=== PATIENT | female | born 1995 | race African-American/Black ===

== ENCOUNTER 2016-02-06 08:22 | Emergency (ER) | payer OTHER ==
[~2016-02-06] VITALS: Ht 180.3 cm; Wt 62.6 kg
[~2016-02-06 08:22] MED LIST: BACTRIM DS 8001 TAB PO; CIPRO 500MG (E500 MG PO; CLEOCIN HCL300 M1 PO; CLEOCIN HCL300 MG PO; CLINDAMYCIN HC300 M1 PO; DOXYCYCLINE HY100 M2 PO; FLONASE120 SPRAY/ NAS; HYDROCODONE/ACE1 TA1 PO; PERCOCET 325 MG1 TA2 PO; PERCOCET 5-3251 EACH PO; PYRIDIUM200 MG PO; VALACYCLOVIR500 MG PO; XYLOCAINE 2% TOP; ZOFRAN ODT4 M1 SL; ZOFRAN4 M1 PO; ZOFRAN4 M1 SL; ZOVIRAX400 MG PO
[2016-02-06 08:25] VITALS: BP 116/81
--- NOTE | 2016-02-06 08:36 | ED GI/GU/ABDOMINAL COMPLAINT ---
History of Present Illness General Chief Complaint: Nausea, Vomiting, Diarrhea Stated Complaint: N/V 10 WEEKS PREG Source: patient Exam Limitations: no limitations Vital Signs & Intake/Output Vital Signs & Intake/Output Vital Signs Date Time Temp Pulse Resp B/P Pulse O2 O2 Flow FiO2 Ox Delivery Rate 02/05 0951 98.8 02/05 0825 98.8 88 16 116/81 99 Room Air Allergies Coded Allergies: Penicillins (RASH 09/07/15) Reconcile Medications Ondansetron (Zofran Odt) 4 MG TAB.RAPDIS 1 TAB SL TID PRN nausea VALACYCLOVIR HCL (Valacyclovir) 500 MG TAB 1 TAB PO DAILY INFECTION (Reported ) Triage Note: PT STATES SHE IS HAVING MORNING SICKNESS. PT STATES SHE IS 10 WEEKS AND SHE FEELS LIKE SHE IS DEHYDRATED. Triage Nurses Notes Reviewed? yes ? Y Is pt currently ? No Onset: Abrupt Duration: hour(s): (SEVERAL) Timing: multiple episodes today Quality/Severity: moderate Location: generalized abdomen Associated Symptoms: nausea/vomiting HPI: This is a 20-year-old female at 10 weeks gestation presents to ER with chief complaint of nausea, 16 episodes of vomiting that started this morning. She states usually gets around 5:30 to go to work at 7. Since waking up this morning she's had 16 episodes of vomiting. She can't tolerate fluids or mane madeline. No fevers or chills. Mild abdominal cramping but no vaginal bleeding. She states that she has been having morning sickness throughout the but today is worse. Denies any known sick contacts per she is working at [employer]. She follows up with Dr. Worley for . She is on daily medications that include Valtrex and multivitamins for the . She was unable to keep those down today as well. Past History Travel History Traveled to [place] past 21 day No Medical History Any Pertinent Medical History? 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 No Review of Systems Review of Systems Constitutional: Denies: chills, fever. EENTM: Reports: no symptoms. Respiratory: Denies: cough, short of breath, sputum production. Cardiovascular: Denies: chest pain, palpitations. GI: Reports: nausea, vomiting. Denies: abdominal pain. Genitourinary: Denies: discharge, dysuria, frequency, pain. Musculoskeletal: Reports: no symptoms. Skin: Reports: no symptoms. Neurological/Psychological: Denies: anxiety, ataxia. Hematologic/Endocrine: Denies: bruising, bleeding, polyuria, polydipsia. Immunologic/Allergic: Denies: splenectomy. All Other Systems: Reviewed and Negative Physical Exam Physical Exam General Appearance: well developed/nourished, alert, awake, mild distress, thin Head: atraumatic, active bleeding Eyes: Bilateral: normal appearance, PERRL, EOMI. Ears, Nose, Throat, Mouth: hearing grossly normal, moist mucous membrane Neck: normal inspection, supple, full range of motion Respiratory: normal breath sounds, chest non-tender, no respiratory distress Cardiovascular: regular rate/rhythm Peripheral Pulses: 2+ radial (R), 2+ radial (L) Gastrointestinal: soft, GRAVID Back: normal inspection, normal range of motion Extremities: normal range of motion Neurologic/Psych: no motor/sensory deficits, awake, alert, oriented x 3 Skin: intact, normal color, warm/dry Core Measures ACS in differential dx? No Severe Sepsis Present: No Septic Shock Present: No Progress Differential Diagnosis: gastritis, HYPEREMESIS, PUD, GERD, PANCREATITIS, GASTROENTERITIS Plan of Care: Orders Procedure Date/time Status URINALYSIS 02/05 0846 Complete Laboratory Tests 02/06/16 0955: Urinalysis LIGHT H, Urine Color YEL, Urine Clarity HAZY H, Urine pH 7.0, Ur Specific [place] 1.020, Urine Protein NEG, Urine Ketones NEG, Urine Nitrite NEG, Urine Bilirubin NEG, Urine Urobilinogen 0.2, Ur Leukocyte Esterase NEG, Ur Microscopic SEDIMENT EXAMINED, Urine RBC RARE, Urine WBC 3-5 H, Ur Epithelial Cells MANY H, Urine Mucus RARE, Urine Hemoglobin NEG, Urine Glucose NEG 02/06/2016 10:48:17 AM Patient feeling better after IV hydration and antiemetics. No longer feeling nauseous. She'll follow up with Dr. Waller in the office. No abdominal pain or vaginal bleeding or discharge. (RONALD KIM,KAROL) Initial ED EKG: none Departure Departure Time of Disposition: 1048 Disposition: HOME OR SELF CARE Condition: Stable Clinical Impression Primary Impression: Vomiting Referrals: SEFERINO BORGES MD (PCP/Family) CHAITANYA RAMOS MD Referred to [facility] as new patient No Additional Instructions: Continue your antinausea medications and vitamins. Follow-up with your HEAVY EQUIPMENT TECHNICIAN doctor in the office. Drink plenty of fluids. Departure Forms: Customer Survey General Discharge Information
== END 2016-02-06 11:05 ==
LOC: ERH 08:22
DX: O21.9 Vomiting of pregnancy, unspecified (principal); Z3A.10 10 weeks gestation of pregnancy
CPT/HCPCS: 81001; 96374; 96375; J0131; J2405

== ENCOUNTER 2016-02-20 10:44 | Emergency (ER) | payer OTHER ==
--- NOTE | 2016-02-20 12:16 | ED GI/GU/ABDOMINAL COMPLAINT ---
History of Present Illness General Chief Complaint: Female Urogenital Problems Stated Complaint: VAG BLEEDING, 3 MONTHS Source: patient Exam Limitations: no limitations Vital Signs & Intake/Output Vital Signs & Intake/Output Vital Signs Date Time Temp Pulse Resp B/P Pulse O2 O2 Flow FiO2 Ox Delivery Rate 02/19 1330 98.0 80 20 120/76 98 Room Air 02/19 1109 97.3 83 22 118/70 97 Allergies Coded Allergies: Penicillins (RASH 09/07/15) Reconcile Medications Ondansetron (Zofran Odt) 4 MG TAB.RAPDIS 1 TAB SL TID PRN nausea VALACYCLOVIR HCL (Valacyclovir) 500 MG TAB 1 TAB PO DAILY INFECTION (Reported ) Triage Note: PER PT PAIN WITH URINATION FOUND BLOOD IN UNDERWEAR. 12 WEEKS . OCCAS CRAMPING NO BLOOD AFTER THAT 1 TIME. LMP 11/19/15 Triage Nurses Notes Reviewed? yes ? Y Is pt currently ? No HPI: This patient is a G1A0P0 female with an unremarkable past medical history who presented to the emergency department today for evaluation of abdominal cramping and possible vaginal bleeding. The patient reported that at approximately 3:00 this morning she was woken up from sleep with 7 out of 10, lower abdominal cramping that felt like, "a period cramp." She reported that it was nonradiating and lasted for a couple hours until she was ASLEEP. She reported that she felt mild cramping later this morning, but not currently. The patient reported that when she got up this morning to go to the bathroom she noticed, "about an ounce of dark brown," blood on her underwear. The patient reported that it was not bright red. She reported that after that incident, she only noticed her normal yellow vaginal discharge. The patient reported that when she went to the bathroom here in the emergency department she did notice a little bit more bleeding. She denied any nausea, vomiting, fevers, chills, back pain, urinary burning, urgency, frequency, or blood in the urine. No leakage of fluid. The patient reported that she called her old SALES REPRESENTATIVE [employer], Dr. Pina, this morning who suggested that she come to the emergency department. This patient's current SALES REPRESENTATIVE [employer] is Dr. Fournier Past History Travel History Traveled to [place] past 21 day No Medical History Any Pertinent Medical History? 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 No Review of Systems Review of Systems Constitutional: Reports: no symptoms. EENTM: Reports: no symptoms. Respiratory: Reports: no symptoms. Cardiovascular: Reports: no symptoms. GI: Reports: see HPI. Genitourinary: Reports: see HPI. Musculoskeletal: Reports: no symptoms. Skin: Reports: no symptoms. Neurological/Psychological: Reports: no symptoms. All Other Systems: Reviewed and Negative Physical Exam Physical Exam Gastrointestinal: normal bowel sounds, soft, non-tender, no organomegaly, no rebound or guarding. No peritoneal signs. No organomegaly Comments: Well-developed well-nourished person in no acute distress HEENT: Normal EENT exam, moist mucous membranes Neck: Full range of motion Back: Normal gait. No CVA tenderness. No midline tenderness Cardiovascular: Regular rate and rhythm with no murmurs Respiratory: No respiratory distress. Speaking in full sentences Extremity: Normal and equal pulses Neuro: Alert oriented x3, motor sensory normal, cranial nerves II through XII grossly intact. Skin: No appreciable rash on exposed skin, skin is warm and dry. Psych: Mood and affect is normal, memory and judgment is normal. Core Measures ACS in differential dx? Yes Severe Sepsis Present: No Septic Shock Present: No Progress Differential Diagnosis: AMI, appendicitis, biliary colic, bowel obstruction, colon cancer, cholecystitis, diverticulitis, ectopic , endometritis, gastritis, hepatitis, ischemic bowel, inflamm bowel dis, intrauterine , kidney stone, ovarian cyst, ovarian torsion, pancreatitis, PID/cervicitis, PUD/ GERD, threatened AB, UTI/pyelo Plan of Care: Orders Procedure Date/time Status Regular Diet 02/19 D Active CULTURE,URINE 02/19 1149 Active URINE 02/19 1149 Complete HUMAN BETA HCG TITRE 02/19 1149 Complete COMPREHENSIVE METABOLIC PANEL 02/19 1149 Complete CBC WITHOUT DIFFERENTIAL 02/19 114 Complete TYPE & SCREEN (NOT X-MATCH) 02/19 114 Complete URINALYSIS 02/19 1138 Complete Laboratory Tests 02/20/16 1216: Anion Gap 11, Estimated GFR > 60, BUN/Creatinine Ratio 12.0, Glucose 76, Calcium 10.2, Total Bilirubin 0.9, AST 20, ALT 31, Alkaline Phosphatase 44, Total Protein 8.1, Albumin 4.8, Globulin 3.3, Albumin/Globulin Ratio 1.5, Beta HCG, Quant 709909.0, CBC w Diff NO MAN DIFF REQ, RBC 4.53, MCV 88.9, MCH 30.0, RDW 12.5, MPV 8.9, Gran % 73.9, Lymphocytes % 17.7 L, Monocytes % 7.3, Eosinophils % 0.9, Basophils % 0.2, Absolute Granulocytes 7.6 H, Absolute Lymphocytes 1.8, Absolute Monocytes 0.8 H, Absolute Eosinophils 0.1, Absolute Basophils 0, PUBS MCHC 33.7 02/20/16 1152: Urine Test POSITIVE 02/20/16 1152: Urine Color YEL, Urine Clarity CLEAR, Urine pH 6.5, Ur Specific [place] 1.020, Urine Protein 30 H, Urine Ketones 15 H, Urine Nitrite NEG, Urine Bilirubin NEG , Urine Urobilinogen 0.2, Ur Leukocyte Esterase NEG, Ur Microscopic SEDIMENT EXAMINED, Urine RBC RARE, Urine WBC RARE, Ur Epithelial Cells MOD H, Urine Mucus MOD H, Urine Hemoglobin NEG, Urine Glucose NEG Microbiology 02/19 115 URINE ROUT: Urine Culture - RECD Diagnostic Imaging: Viewed by Me: Ultrasound. Discussed w/RAD: Ultrasound. Radiology Impression: PATIENT: JUAN CARLOS CURRY PRESENT AGE: 20 PATIENT ACCOUNT NO: [id number] : 94 LOCATION: [facility] ORDERING PHYSICIAN: SANGEETA SHEPPARD PA-C SERVICE DATE: 02/20/16 EXAM TYPE: US - US- VIABILITY EXAMINATION: US , VIABILITY CLINICAL INFORMATION: Abdominal cramping. viability. Cramping and bleeding for one day. COMPARISON: Pelvic sonography performed 01/11/2015. TECHNIQUE: Transabdominal pelvic sonography was performed. FINDINGS: A single intrauterine is demonstrated. heart rate measures 154 bpm. BPD is 1.92 cm ( estimated gestational age 13 weeks, 1 day). Head circumference is 7.27 cm ( estimated gestational age 13 weeks, 1 day). Abdominal circumference is 5.08 cm ( estimated gestational age 12 weeks, 1 day). Femur length is 0.84 cm (estimated gestational age 12 weeks, 4 days). Posterior positioning of the placenta. IMPRESSION: Single live intrauterine demonstrated. Estimated age by ultrasound 12 weeks, 6 days (estimated date of delivery 08/28/2016). Recommend clinical follow-up for the patient's cramping and bleeding. DICTATED BY: MARIA FERNANDA ART MD DATE/TIME DICTATED:02/20/161410 DRENCHER:ELIDA DATE/ TIME TRANSCRIBED:02/20/161410 CONFIDENTIAL, DO NOT COPY WITHOUT APPROPRIATE AUTHORIZATION. <Electronically signed in Other Vendor System> SIGNED BY: MARIA FERNANDA ART MD 02/20/16 1419 Initial ED EKG: none Comments: 02/20/2016 2:26:41 PM: I was at the patient's bedside to update her on her imaging and laboratory studies. H&H normal. No increase in white blood cell count. A single intrauterine was identified at approximately 12 weeks and 6 days gestation. Discussed with this patient and the importance of following up with her SALES REPRESENTATIVE [employer] in returning to the emergency department should her abdominal cramping worsen or should her bleeding get worse or turned bright red. She is in agreement with this plan. Stable for discharge home at this time. Departure Departure Disposition: HOME OR SELF CARE Condition: Stable Clinical Impression Primary Impression: Vaginal bleeding before 22 weeks gestation Referrals: KATERINA KIM,SEFERINO (PCP/Family) Additional Instructions: Please continue to take vitamins. Rest and avoid any strenuous activity. Please call your SALES REPRESENTATIVE [employer] tomorrow morning to schedule a follow-up appointment which will likely be sooner than her next appointment. You may take [id number] Tylenol for pain. Return to the emergency department for any worsening symptoms or concerns. Departure Forms: Customer Survey General Discharge Information
[2016-02-20 12:35] LABS: ABSOLUTE BASOPHIL COUNT 0 /CUMM (0.0-0.2); ABSOLUTE EOSINOPHIL COUNT 0.1 /CUMM (0.0-0.7); ABSOLUTE GRANULOCYTE CT 7.6 /CUMM (1.4-6.5); ABSOLUTE LYMPH COUNT 1.8 /CUMM (1.2-3.4); ABSOLUTE MONOCYTE COUNT 0.8 /CUMM (0.10-0.60); BASOPHIL % 0.2 % (0.0-2.0); EOSINOPHIL % 0.9 % (0-5); GRANULOCYTE % 73.9 % (42.2-75.2); HEMATOCRIT 40.3 % (37-47); MEAN CORPUSCULAR HGB CONC 33.7 G/DL (33.0-37.0); MEAN CORPUSCULAR VOLUME 88.9 FL (81.0-99.0); MEAN PLATELET VOLUME 8.9 FL (7.4-10.4); PLATELET COUNT 234 /CUMM (130-400); RBC DISTRIBUTION WIDTH 12.5 % (11.5-14.5); RED BLOOD CELL CT 4.53 /CUMM (4.20-5.40); WHITE BLOOD CELL COUNT 10.3 /CUMM (4.8-10.8)
[2016-02-20 13:30] VITALS: BP 120/76
--- NOTE | 2016-02-20 14:19 | ULTRASOUND REPORT ---
EXAMINATION: US , VIABILITY CLINICAL INFORMATION: Abdominal cramping. viability. Cramping and bleeding for one day. COMPARISON: Pelvic sonography performed 01/11/2015. TECHNIQUE: Transabdominal pelvic sonography was performed. FINDINGS: A single intrauterine is demonstrated. heart rate measures 154 bpm. BPD is 1.92 cm (estimated gestational age 13 weeks, 1 day). Head circumference is 7.27 cm (estimated gestational age 13 weeks, 1 day). Abdominal circumference is 5.08 cm (estimated gestational age 12 weeks, 1 day). Femur length is 0.84 cm (estimated gestational age 12 weeks, 4 days). Posterior positioning of the placenta. IMPRESSION: Single live intrauterine demonstrated. Estimated age by ultrasound 12 weeks, 6 days (estimated date of delivery 08/28/2016). Recommend clinical follow-up for the patient's cramping and bleeding.
== END 2016-02-20 14:32 ==
LOC: ERH 10:44
PROVIDERS: Physician Assistant
DX: O20.9 Hemorrhage in early pregnancy, unspecified (principal); Z3A.12 12 weeks gestation of pregnancy
CPT/HCPCS: 81001; 81025; 87086